=== PATIENT | female | born 1985 | race Caucasian/White ===

== ENCOUNTER 2017-01-15 17:41 | Emergency (ER) | payer MEDICAID ==
[~2017-01-15 17:41] MED LIST: ANAPROX DS550 MG PO; CIPRO 250MG TA250 MG PO; COLACE100 MG PO; FLAGYL500 M1 PO; FLINTSTONES1 CTB PO; IBUPROFEN 600M600 MG PO; IRON TABLETS325 M1 PO; KEFLEX 500MG.500 MG PO; MOTRIN 400MG.400 MG PO; MOTRIN400 MG PO; NOMEDS; PERCOCET 5/3251 EACH PO; PREDNICOT10 MG PO; PROPRANOLOL HCL20 MG PO; PYRIDIUM 200MG200 MG PO
[2017-01-15 17:58] VITALS: BP 111/74
== END 2017-01-15 17:59 | disposition home or self-care (01) ==
LOC: UTC 17:41
DX: S21.211D Laceration without foreign body of right back wall of thorax without penetration into thoracic cavity, subsequent encounter (principal)

== ENCOUNTER → 2017-03-13 | Outpatient (CLI) | payer MEDICAID | LOC: LAB 18:07 | DX: E05.90 Thyrotoxicosis, unspecified without thyrotoxic crisis or storm (principal) ==